=== PATIENT | female | born 1955 | race Caucasian/White ===

== ENCOUNTER 2016-10-20 10:36 | Emergency (ER) | payer BC ==
[~2016-10-20] VITALS: Ht 160 cm; Wt 77.9 kg
[~2016-10-20 10:36] MED LIST: CLC100 PO; IBUP-1050 PO; LANS30CA63 PO; LOSA100T65 PO; POTA20TA13 PO; PRED1SUS3 OPL; RANI150T2 PO
[2016-10-20 10:46] VITALS: TEMP 36.8; Ht 160 cm; Wt 77.9 kg
[2016-10-20] MEDS ORDERED: SODIUM CHLORIDE 0.9% 1000ML 1,000 ML IV STA ×2 (10:49→11:03)
[2016-10-20] MEDS ORDERED: HYDR25TA5 PO (10:58)
[2016-10-20] MEDS ORDERED: VBRT100 PO (10:58)
[2016-10-20] MEDS ORDERED: NRV/5 PO (10:58)
[2016-10-20] MEDS ORDERED: ACET-1256 PO (10:58)
[2016-10-20] MEDS ORDERED: TPRSR/100 PO (10:58)
[2016-10-20 11:12] VITALS: O2SAT 96
[2016-10-20 11:26] LABS: BASO % 0.5 %; BASO ABS # 0.03 K/uL (0-0.2); COMPLETE YES; EOS % 1.4 %; HEMATOCRIT 38.8 % (37-47); IG% 0.2 %; LYMPH % 33.1 %; LYMPH ABS # 1.85 K/uL (1.2-3.4); MEAN CELL VOLUME 87.8 fL (80-100); MEAN CORPUSCULAR HEMOGLOBIN 30.3 pg (25-34); MEAN CORPUSCULAR HGB CONC 34.5 g/dl (32-36); MEAN PLATELET VOLUME 9.2 fL (7.4-10.4); NEUT % 54.8 %; PLATELET COUNT 345 K/uL (130-400); RED BLOOD COUNT 4.42 M/uL (4.2-5.4); WHITE BLOOD COUNT 5.59 K/uL (4.8-10.8)
[2016-10-20 11:33] LABS: INR 0.9 (0.9-1.1); PARTIAL THROMBOPLASTIN RATIO 0.9; PROTHROMBIN TIME (PATIENT) 10.1 SECONDS (9.0-12.0)
[2016-10-20 11:43] LABS: ALT/SGPT 23 U/L (12-78); AST/SGOT 16 U/L (15-37); BLOOD UREA NITROGEN 33 mg/dl (7-18); BUN/CREATININE RATIO 18.3 (10-20); CALCIUM 8.8 mg/dl (8.5-10.1); CARBON DIOXIDE 25 mmol/L (21-32); CHLORIDE 103 mmol/L (98-107); GLUCOSE 112 mg/dl (70-99); POTASSIUM 3.2 mmol/L (3.5-5.1); SODIUM 136 mmol/L (136-145)
[2016-10-20 11:54] LABS: ALKALINE PHOSPHATASE 82 U/L (45-117)
[2016-10-20] MEDS ORDERED: POTASSIUM CHLORIDE 10 MEQ TABCR PO STA (12:31)
[2016-10-20 12:53] LABS: URINE APPEARANCE CLEAR (CLEAR); URINE BILIRUBIN NEG (NEG); URINE COLOR YELLOW; URINE NITRITE NEG (NEG); URINE SPECIFIC GRAVITY 1.009 (1.000-1.030); UROBILINOGEN NEG (NEG)
[2016-10-20 13:14] LABS: MANUAL MICROSCOPIC REQUIRED? NO; REVIEW REQ? NO
[2016-10-20 15:11] VITALS: BP 147/74; PULSE 60; O2SAT 98
--- NOTE | 2016-10-20 15:44 | EMERGENCY ROOM VISIT NOTE ---
History Report prepared by Isaak: Eddie Lin Under the Supervision of: Dr. Orlando Mustafa M.D. First contact with patient: 10:48 Chief Complaint: ABNORMAL LABS Stated Complaint: ABNORMAL LABS History of Present Illness The patient is a 61 year old female who presents to the Emergency Room after receiving abnormal laboratory studies. The patient states that she had been experiencing diarrhea for the past three days, and herrera to see her PCP yesterday at [facility] to have laboratory work done. She was called today and advised to come to the emergency department due to her labs showing evidence of acute renal failure. She is also currently experiencing bronchitis symptoms, and has been cramping throughout her body. She just started Doxycycline for her bronchitis. The patient was diagnosed with C-diff in January of last year. Her diarrhea has resolved. She notes drinking lots of fluids last night. She currently denies LOC, headache, fevers, chills, diaphoresis, visual changes, neck pain, nausea, vomiting, abdominal pain, back pain, melena, hematochezia, urinary symptoms, numbness, weakness, lymphadenopathy, rash, or other complaints. Source of History: patient Onset: Today Position: other (Laboratory studies) Quality: other (Labs showing renal failure) Associated Symptoms: + diarrhea Note: global cramping. Review of Systems See HPI for pertinent positives and negatives. A total of ten systems were reviewed and were otherwise negative. Past Medical & Surgical Medical Problems: (1) Cataract (2) Detached retina (3) HTN (hypertension) Surgical Problems: (1) S/P tubal ligation Family History Diabetes mellitus Hypertension Kidney stones Social History Smoking Status: Current Every Day Smoker Drug Use: none Marital Status: Housing Status: lives with family Occupation Status: retired Current/Historical Medications Scheduled Amlodipine Besylate (Amlodipine Besylate), 1 TAB PO DAILY Doxycycline Hyclate (Doxycycline Hyclate), 1 TAB PO BID Hydrochlorothiazide (Hydrochlorothiazide), 1 TAB PO DAILY Lansoprazole (Prevacid), 30 MG PO QAM Losartan Potassium (Cozaar), 100 MG PO DAILY Metoprolol Succinate (Metoprolol Succinate ER), 1 TAB PO DAILY Ranitidine HCl (Ranitidine HCl), 150 MG PO DAILY Scheduled PRN Acetaminophen (Tylenol), 500 MG PO Q6H PRN for Pain Allergies Coded Allergies: No Known Allergies (Unverified , 10/20/16) Physical Exam Vital Signs Date Time Temp Pulse Resp B/P Pulse Ox O2 Delivery O2 Flow Rate FiO2 10/20/16 15:11 60 18 147/74 98 Room Air 10/20/16 13:31 64 15 97 10/20/16 13:30 111/63 10/20/16 13:26 59 15 96 10/20/16 13:21 60 10 99 10/20/16 13:21 61 10/20/16 13:16 62 16 97 10/20/16 13:11 61 12 96 10/20/16 13:06 61 17 96 10/20/16 13:01 60 11 97 10/20/16 13:00 116/56 10/20/16 12:56 60 15 96 10/20/16 12:51 62 16 97 10/20/16 12:46 82 20 98 10/20/16 12:41 63 14 97 10/20/16 12:36 79 26 95 10/20/16 12:31 61 12 97 10/20/16 12:30 127/63 10/20/16 12:11 69 10 97 10/20/16 12:06 67 17 98 10/20/16 12:01 66 9 98 10/20/16 12:00 135/67 10/20/16 11:56 71 12 96 10/20/16 11:51 65 8 96 10/20/16 11:46 68 20 96 10/20/16 11:41 68 10 96 10/20/16 11:36 69 13 97 10/20/16 11:31 68 11 98 10/20/16 11:30 126/73 10/20/16 11:26 70 13 96 10/20/16 11:21 74 16 98 10/20/16 11:18 76 10/20/16 11:16 84 19 98 10/20/16 11:12 148/74 10/20/16 11:12 96 Room Air 10/20/16 10:46 36.8 96 18 120/75 98 Room Air Physical Exam GENERAL: Awake, alert, well-appearing, in no distress HENT: Normocephalic, atraumatic. Oropharynx unremarkable. EYES: Normal conjunctiva. Sclera non-icteric. NECK: Supple. No nuchal rigidity. FROM. No JVD. RESPIRATORY: Clear to auscultation. CARDIAC: Regular rate, normal rhythm. Extremities warm and well perfused. Pulses equal. ABDOMEN: Soft, non-distended. No tenderness to palpation. No rebound or guarding. No masses. RECTAL: Deferred. MUSCULOSKELETAL: Chest examination reveals no tenderness. The back is symmetrical on inspection without obvious abnormality. There is no CVA tenderness to palpation. No joint edema. LOWER EXTREMITIES: Calves are equal size bilaterally and non-tender. No edema. No discoloration. NEURO: Normal sensorium. No sensory or motor deficits noted. SKIN: No rash or jaundice noted. Medical Decision & Procedures Laboratory Results 10/20/16 11:14 Red Blood Count 4.42, Mean Corpuscular Volume 87.8, Mean Corpuscular Hemoglobin 30.3, Mean Corpuscular Hemoglobin Concent 34.5, Mean Platelet Volume 9.2, Neutrophils (%) (Auto) 54.8, Lymphocytes (%) (Auto) 33.1, Monocytes (%) (Auto) 10.0, Eosinophils (%) (Auto) 1.4, Basophils (%) (Auto) 0.5, Neutrophils # (Auto ) 3.06, Lymphocytes # (Auto) 1.85, Monocytes # (Auto) 0.56, Eosinophils # (Auto ) 0.08, Basophils # (Auto) 0.03 10/20/16 11:14 Test 10/20/16 11:14 10/20/16 12:30 White Blood Count 5.59 K/uL (4.8-10.8) Red Blood Count 4.42 M/uL (4.2-5.4) Hemoglobin 13.4 g/dL (12.0-16.0) Hematocrit 38.8 % (37-47) Mean Corpuscular Volume 87.8 fL (80-100) Mean Corpuscular Hemoglobin 30.3 pg (25-34) Mean Corpuscular Hemoglobin Concent 34.5 g/dl (32-36) Platelet Count 345 K/uL (130-400) Mean Platelet Volume 9.2 fL (7.4-10.4) Neutrophils (%) (Auto) 54.8 % Lymphocytes (%) (Auto) 33.1 % Monocytes (%) (Auto) 10.0 % Eosinophils (%) (Auto) 1.4 % Basophils (%) (Auto) 0.5 % Neutrophils # (Auto) 3.06 K/uL (1.4-6.5) Lymphocytes # (Auto) 1.85 K/uL (1.2-3.4) Monocytes # (Auto) 0.56 K/uL (0.11-0.59) Eosinophils # (Auto) 0.08 K/uL (0-0.5) Basophils # (Auto) 0.03 K/uL (0-0.2) RDW Standard Deviation 41.8 fL (36.4-46.3) RDW Coefficient of Variation 13.0 % (11.5-14.5) Immature Granulocyte % (Auto) 0.2 % Immature Granulocyte # (Auto) 0.01 K/uL (0.00-0.02) Prothrombin Time 10.1 SECONDS (9.0-12.0) Prothromb Time International Ratio 0.9 (0.9-1.1) Activated Partial Thromboplast Time 23.9 SECONDS (21.0-31.0) Partial Thromboplastin Ratio 0.9 Anion Gap 8.0 mmol/L (3-11) Est Creatinine Clear Calc Drug Dose 32.0 ml/min Estimated GFR () 34.4 Estimated GFR (Non- 29.6 BUN/Creatinine Ratio 18.3 (10-20) Calcium Level 8.8 mg/dl (8.5-10.1) Magnesium Level 2.0 mg/dl (1.8-2.4) Total Bilirubin 0.5 mg/dl (0.2-1) Direct Bilirubin 0.1 mg/dl (0-0.2) Aspartate Amino Transf (AST/SGOT) 16 U/L (15-37) Alanine Aminotransferase (ALT/SGPT) 23 U/L (12-78) Alkaline Phosphatase 82 U/L (45-117) Troponin I < 0.015 ng/ml (0-0.045) Total Protein 7.6 gm/dl (6.4-8.2) Albumin 3.7 gm/dl (3.4-5.0) Lipase 156 U/L (73-393) Thyroid Stimulating Hormone (TSH) 1.420 uIu/ml (0.300-4.500) Urine Color YELLOW Urine Appearance CLEAR (CLEAR) Urine pH 5.0 (4.5-7.5) Urine Specific [place] 1.009 (1.000-1.030) Urine Protein NEG (NEG) Urine Glucose (UA) NEG (NEG) Urine Ketones NEG (NEG) Urine Occult Blood NEG (NEG) Urine Nitrite NEG (NEG) Urine Bilirubin NEG (NEG) Urine Urobilinogen NEG (NEG) Urine Leukocyte Esterase NEG (NEG) Laboratory results reviewed by me Medications Administered Medications (Trade) Dose Ordered Sig/Reagan Route Start Time Stop Time Status Last Admin Dose Admin Sodium Chloride 1,000 ml @ 125 mls/hr Q8H STAT IV 10/20/16 10:49 10/20/16 17:45 DC 10/20/16 10:49 125 MLS/HR Sodium Chloride (Nss 1000ml) 1,000 ml @ 999 mls/hr Q1H1M STAT IV 10/20/16 11:03 10/20/16 12:03 DC 10/20/16 11:03 999 MLS/HR Potassium Chloride (Klor-Con M10) 40 meq NOW STAT PO 10/20/16 12:31 10/20/16 12:33 DC 10/20/16 12:44 40 MEQ ECG Indication: other (Abnormal labs) Rate (beats per minute): 90 Rhythm: normal sinus Findings: nonspecific-ST abn, ST depression (Anterolateral) Comparison ECG Date: no prior available ED Course 1049: Ordered Sodium Chloride 1000 mL @ 125 mL/hr IV. 1103: The patient was evaluated in room C9. A complete history and physical exam was performed. 1103: Order Sodium Chloride 1000 mL @ 999 mL/hr IV. 1204: I reassed the patient at this time. she is feeling well. I will talk with nephrology. 1224: I discussed the case with Dr. Kothari - Nephrology at this time. He suggests holding the Hydrochlorothiazide until the 15th and holding the Losartan until the th. 1231: Potassium Chloride 40 meq PO. 1537: I reevaluated the patient at this time. She is doing great. I discussed the results with the patient. She is in agreement with the treatment plan and understands the recommendations for her medications. She will be discharged home. Medical Decision Triage Nursing notes reviewed. The patient's presentation and history were concerning for possible renal failure. Etiologies such as metabolic, infection, hypo/hyperglycemia, electrolyte abnormalities, cardiac sources, intracerebral event, toxicologic, neurologic, as well as others were entertained. The patient was evaluated. She was hydrated with normal saline. Blood work was obtained. ECG was performed. The patient had unremarkable CBC, coags, LFTs, and lipase. Her urinalysis is negative. Chemistry panel revealed potassium at 3.2. This was repleted. Her creatinine was mildly elevated at 1.8. A consultation was placed with her silk spooler, Dr. Kothari. She recommended holding the hydrochlorothiazide until Monday. She also recommended holding the patient's losartan tomorrow and restart it on Monday. She will continue her other antihypertensives. The patient's creatinine was 2.7 yesterday and is now 1.8. She has hydrated orally yesterday. And has been hydrating well today. Dr. Kothari asked for her to have repeat chemistries done on Monday. Case management did notify the clinic to set up a follow-up appointment. The patient felt comfortable with the plan. Return stricture outlined and she was discharged in stable condition. The chart was completed utilizing [employer] Speech voice recognition software. Grammatical errors, random word insertions, pronoun errors, and incomplete sentences are an occasional consequence of this system due to software limitations, ambient noise, and hardware issues. Any formal questions or concerns about the content, text, or information contained within the body of this dictation should be directly addressed to the physician for clarification. Consults Time Called: 1214 Consulting Physician: Dr. Kothari - Nephrology Returned Call: 1224 I discussed the case with Dr. Kothari - Nephrology at this time. He suggests holding the Hydrochlorothiazide until the and holding the Losartan until the . Impression Primary Impression: Acute kidney failure Additional Impression: Dehydration Scribe Attestation The scribe's documentation has been prepared under my direction and personally reviewed by me in its entirety. I confirm that the note above accurately reflects all work, treatment, procedures, and medical decision making performed by me. Departure Information Dispostion Home / Self-Care Referrals Pranav Bryan M.D. (PCP) Forms HOME CARE DOCUMENTATION FORM, IMPORTANT VISIT INFORMATION, WORK / SCHOOL INSTRUCTIONS Patient Instructions My [facility] CUPS Additional Instructions Hold your hydrochlorothiazide (HCTZ) until Monday the . Do not take your losartan tomorrow but restart this on Monday the . Follow-up with your primary clinic on Monday. Case management contacted the clinic to assist you with this appointment. A recheck of your kidney function and potassium will be necessary. Return to the ER for worsening feelings of dehydration, diarrhea, abdominal pain , vomiting, fevers, bloody stools, or as needed. Problem Qualifiers
== END 2016-10-20 15:50 | disposition home or self-care (01) ==
LOC: C.EDB 10:40 → C.EDC 15:50
DX: N17.9 Acute kidney failure, unspecified (principal); E86.0 Dehydration; H26.9 Unspecified cataract; I10 Essential (primary) hypertension; F17.200 Nicotine dependence, unspecified, uncomplicated; Z98.51 Tubal ligation status; Z83.3 Family history of diabetes mellitus; Z82.49 Family history of ischemic heart disease and other diseases of the circulatory system; Z84.1 Family history of disorders of kidney and ureter; Z79.899 Other long term (current) drug therapy